=== PATIENT | female | born 1980 | race Caucasian/White ===

== ENCOUNTER 2017-03-22 20:25 | Emergency (ER) | payer MEDICAID ==
[~2017-03-22] VITALS: Ht 157.5 cm; Wt 60.0 kg
[2017-03-22 20:31] VITALS: Ht 157.5 cm; Wt 60.0 kg
[2017-03-22] MEDS ORDERED: IBUP-1542 PO (20:53)
[2017-03-22] MEDS ORDERED: GABA300C16 PO (20:53)
--- NOTE | 2017-03-22 21:07 | ERD ---
ER Documentation Chief Complaint Date/Time DATE: 03/22/17 TIME: 21:05 Chief Complaint RT SIDE FRONTAL SAAVEDRA + RT UPPER LIP NUMBNESS SINCE YESTERDAY HPI 36-year-old female presents here in the emergency department for complaints of right facial pain, right frontal headache episodes of on and off numbness and tingling on the right side of the face that started yesterday. Patient describes the pain as sharp pain, 4/10 scale, sometimes it is an electric shock pain. Patient denies any vision changes. Patient is able to open and close the mouth without any problems. Patient denies any tremors. Patient did not take any medications for pain. Patient denies any deformity. Patient denies any slurred speech, facial droop. Patient denies any dizziness. ROS All systems reviewed and are negative except as per history of present illness. Medications Home Meds Active Scripts Ibuprofen* (Motrin*) 600 Mg Tab, 600 MG PO Q6H Y for PAIN AND OR ELEVATED TEMP, #30 TAB Prov:MANDO LEW NP 03/22/17 Gabapentin* (Gabapentin*) 300 Mg Capsule, 300 MG PO BID, #60 CAP Prov:MANDO LEW NP 03/22/17 Allergies Allergies: Coded Allergies: No Known Allergy (Verified , 03/22/17) PMhx/Soc Medical and Surgical Hx: pt denies Medical Hx, pt denies Surgical Hx Hx Alcohol Use: No Hx Substance Use: No Hx Tobacco Use: No Smoking Status: Never smoker Physical Exam Vitals Vital Signs Date Time Temp Pulse Resp B/P Pulse Ox O2 Delivery O2 Flow Rate FiO2 03/22/17 20:31 98.2 78 20 142/70 100 Physical Exam Const: [] Head: Atraumatic Eyes: Normal Conjunctiva ENT: Normal External Ears, Nose and Mouth. Neck: Full range of motion..~ No meningismus. Resp: Clear to auscultation bilaterally Cardio: Regular rate and rhythm, no murmurs Abd: Soft, non tender, non distended. Normal bowel sounds Skin: No petechiae or rashes Back: No midline or flank tenderness Ext: No cyanosis, or edema Neur: Awake and alert Psych: Normal Mood and Affect Procedures/MDM Medical Decision Making: Patient symptoms are consistent with trigeminal neuralgia. There is low suspicion for neurological emergencies at this time since patients neurologic exam is normal. Patient did not have any altered level consciousness, vomiting, changes in balance or memory and did not have any head injury. CT scan of the brain that indicated at this time. Rx: Gabapentin, ibuprofen Dispostion: Home. Stable Departure Diagnosis: Primary Impression: Trigeminal neuralgia of right side of face Condition: Stable Patient Instructions: Trigeminal Neuralgia MANDO LEW NP Mar 22, 2017 21:07
== END 2017-03-22 21:00 | disposition home or self-care (01) ==
LOC: FTE 20:25
DX: G50.0 Trigeminal neuralgia (principal)
CPT/HCPCS: 99283